=== PATIENT | female | born 1950 | race Asian ===

== ENCOUNTER 2017-11-03 18:05 | Emergency (ER) | payer OTHER ==
[~2017-11-03] VITALS: Ht 165.1 cm; Wt 81.6 kg
[2017-11-03 21:15] VITALS: BP 150/99; TEMP 99.1
== END 2017-11-03 21:45 | disposition short-term general hospital (02) ==
LOC: ED 18:05
DX: S12.121A Other nondisplaced dens fracture, initial encounter for closed fracture (principal); R51 Headache; W01.0XXA Fall on same level from slipping, tripping and stumbling without subsequent striking against object, initial encounter; Y92.89 Other specified places as the place of occurrence of the external cause
CPT/HCPCS: 96374; 99284; J1885